=== PATIENT | female | born 1990 ===

== ENCOUNTER 2021-05-29 13:40 | Outpatient (CLI) | payer SELFPAY ==
[2021-05-29 15:10] VITALS: BP 105/60
[2021-05-29] MEDS ORDERED: LACTATED RINGERS 1,000 ML ONE (15:53)
--- NOTE | 2021-05-29 17:13 | Event Note ---
Date: 05/29/21 contractions no cervical change IV fluids steroids ancef nifedipine 20mg x1 dose recheck cervix in one hour,may DC home if no cervical change Retern to triage in 24 hours for Kush #2 PTL precautions Mio Holguin MD
[2021-05-29] MEDS ORDERED: BETAMET ACET/BETAMET NA PH 6 MG/ML INJ 5 ML MDV IM SCH (17:30)
[2021-05-29] MEDS ORDERED: NIFEdipine*For Tocolysis only* 10 MG CAPSULE PO SCH (17:30)
[2021-05-29] MEDS ORDERED: LACTATED RINGERS 500 ML IV ONE (18:57)
== END 2021-05-29 19:11 | disposition home or self-care (01) ==
LOC: TRG 13:40 → APU 13:41 → TRG 19:11
PROVIDERS: ATTEND Obstetrics & Gynecology
DX: O62.9 Abnormality of forces of labor, unspecified (principal); Z3A.33 33 weeks gestation of pregnancy
CPT/HCPCS: 36415; 59025; 82731; 96365; 96372; J0690; J0702; 96360

== ENCOUNTER 2021-05-30 18:33 | Outpatient (CLI) | payer SELFPAY ==
[2021-05-30] MEDS ORDERED: LACTATED RINGERS 500 ML IV ONE (20:32)
[2021-05-30] MEDS ORDERED: BETAMET ACET/BETAMET NA PH 6 MG/ML INJ 5 ML MDV IM ONE (20:51)
[2021-05-30 20:55] VITALS: BP 101/65
== END 2021-05-30 21:56 | disposition home or self-care (01) ==
LOC: TRG 18:33 → APU 18:34 → TRG 21:56
PROVIDERS: ATTEND Obstetrics & Gynecology
DX: Z34.93 Encounter for supervision of normal pregnancy, unspecified, third trimester (principal); Z3A.33 33 weeks gestation of pregnancy
CPT/HCPCS: 59025; 96372; J0702; 96368

== ENCOUNTER 2021-07-04 08:34 | Inpatient (IN) | payer SELFPAY ==
[2021-07-04] MEDS ORDERED: LOPERAMIDE 2 MG CAP PO PRN (09:51)
[2021-07-04] MEDS ORDERED: miSOPROStol 200 MCG TAB PR PRN (09:51)
[2021-07-04] MEDS ORDERED: ePHEDrine SULFATE 50 MG/1 ML INJ IV PRN (09:51)
[2021-07-04] MEDS ORDERED: TERBUTALINE 1 MG/1 ML INJ SUB-Q PRN (09:51)
[2021-07-04] MEDS ORDERED: LIDOCAINE (2%) 20 MG/1 ML VIAL 20 ML MDV INFILTRATI ONE ×2 (09:51→13:37)
[2021-07-04] MEDS ORDERED: CARBOPROST TROMETHAMINE 250 MCG/1 ML INJ IM PRN (09:51)
[2021-07-04] MEDS ORDERED: PROMETHAZINE 25 MG TAB PO PRN ×2 (09:51→15:26)
[2021-07-04] MEDS ORDERED: OXYTOCIN 10 UNIT/1 ML INJ IM PRN (09:51)
[2021-07-04] MEDS ORDERED: BUTORPHANOL 2 MG/1 ML INJ IV PRN ×2 (09:51)
[2021-07-04] MEDS ORDERED: METHYLERGONOVINE MALEATE 0.2 MG/ML VIAL IM PRN (09:51)
[2021-07-04] MEDS ORDERED: ACETAMINOPHEN 325 MG TAB PO PRN ×2 (09:51→15:26)
[2021-07-04] MEDS ORDERED: MINERAL OIL 30 ML ORAL LIQD PO PRN (09:51)
[2021-07-04] MEDS ORDERED: ONDANSETRON 4 MG/2 ML INJ IV PRN ×2 (09:51→15:26)
[2021-07-04] MEDS ORDERED: NALOXONE 0.4 MG/1 ML INJ IV PRN (09:51)
[2021-07-04] MEDS ORDERED: LACTATED RINGERS 1,000 ML ONE (09:55)
[2021-07-04] MEDS ORDERED: OXYTOCIN DRIP 30 UNITS/500 ML BAG IV SCH (10:00)
[2021-07-04] MEDS: LACTATED RINGERS 1,000 ML IV SCH ×2 (10:35→11:52)
[2021-07-04] MEDS: OXYTOCIN DRIP 30 UNITS/500 ML BAG IV SCH ×2 (11:53→13:10)
[2021-07-04] MEDS: fentaNYL 100 MCG/2 ML INJ IV PRN ×2 (11:54→13:43)
[2021-07-04 12:05] LABS: Hematocrit 37.2 % (30.3-42.9); Hemoglobin 12.6 gm/dl (10.1-14.3); Mean Corpuscular HGB Conc 34 % (30-34); Mean Corpuscular Volume 96 fl (79-97); Platelet Count 169 K/mm3 (140-440); Red Blood Count 3.87 M/mm3 (3.65-5.03); Red Cell Distribution Width 13.8 % (13.2-15.2)
[2021-07-04] MEDS ORDERED: diphenhydrAMINE 25 MG CAP PO PRN (15:26)
[2021-07-04] MEDS ORDERED: PROMETHAZINE 25 MG RECT SUPP PR PRN (15:26)
[2021-07-04] MEDS ORDERED: LANOLIN/ZINC/DIMETHICONE (LANSINOH) 7 GM TP PRN (15:26)
[2021-07-04] MEDS ORDERED: WITCH HAZEL/ GLYCERIN PAD TP PRN (15:26)
[2021-07-04] MEDS ORDERED: oxyCODONE /ACETAMINOPHEN 5-325MG TAB PO PRN (15:26)
[2021-07-04] MEDS ORDERED: MAGNESIUM HYDROXIDE (MOM) ORAL LIQD UDC PO PRN (15:26)
--- NOTE | 2021-07-04 15:35 | Procedure Note ---
OB Delivery Note - Delivery Date of Delivery: 07/04/21 (at 1334) Careers Adviser: ESME CHEATHAM (FABIOLA) Estimated blood loss: 500cc - Vaginal Delivery presentation: vertex Delivery position: OA Intrapartum events: meconium (light prior to delivery; terminal meconium) Delivery induction: none Delivery augmentation: rupture of membranes, pitocin Delivery monitor: external FHT, external uterine Route of delivery: Delivery placenta: spontaneous (intact; 3vessel cord) Delivery cord: nuchal cord (x1 not reduceable, sumersal technique) Episiotomy: none Delivery laceration: 2nd degree (perineal), other (periurethral) Anesthesia: intravenous (fentanyl) - A at 1 minute: 8 at 5 minutes: 9 Infant Gender: Male (7lbs 10oz)
[2021-07-04] MEDS: IBUPROFEN 600 MG TAB PO SCH (17:08)
[2021-07-04] MEDS ORDERED: BENZOCAINE/MENTHOL 20/0.5% TOP SPRAY 56 GM TP PRN (17:51)
[2021-07-04] MEDS ORDERED: TETANUS,DIPH,PERTUSS(ACELL) VACCINE 0.5 ML SYRINGE IM ONE (21:00)
[2021-07-05] MEDS: IBUPROFEN 600 MG TAB PO SCH ×4 (00:21→18:38)
[2021-07-05 05:52] LABS: Hematocrit 28.1 % (30.3-42.9); Hemoglobin 9.5 gm/dl (10.1-14.3)
[2021-07-05] MEDS: LEVOTHYROXINE 75 MCG TAB PO SCH (05:58)
[2021-07-05] MEDS: DOCUSATE SODIUM 100 MG CAP PO SCH (10:25)
[2021-07-05] MEDS: metFORMIN 500 MG TAB PO SCH ×2 (10:26→18:39)
--- NOTE | 2021-07-05 12:29 | Progress Note ---
Assessment and Plan A: day 1 S/P . Anemia. Diabetes. P: Supplement with iron. Continue Metformin as prescribed. Continue routine care. Anticipate discharge home tomorrow if patient continues to do well. Subjective - Subjective Date of service: 07/05/21 Principal diagnosis: day 1 S/P Patient reports: appetite normal, voiding normally, pain well controlled, flatus, ambulating normally, no dizzy ambulation, no nauseated : doing well Objective - Vital Signs Latest vital signs: Vital Signs Temp Pulse Resp BP BP Pulse Ox Pulse Ox 07/05/21 08:41 98.2 F 87 18 124/74 97 07/05/21 06:58 18 07/05/21 05:58 18 07/05/21 00:42 98.6 F 62 18 133/70 99 07/04/21 20:30 98.2 F 59 L 18 106/59 07/04/21 19:15 97 07/04/21 15:49 98 07/04/21 15:48 98 F 72 18 123/68 98 07/04/21 14:11 78 117/69 07/04/21 12:28 63 99 Intake and Output 07/04/21 07/05/21 07/05/21 23:59 07:59 15:59 Intake Total 300 200 Output Total 675 800 Balance -375 -600 Intake: Oral 200 Intake, Free Water 300 Output: Urine 675 800 Void 675 800 Other: Total, Intake Amount 200 Total, Output Amount 300 800 # Voids Void 1 1 Estimated Blood Loss 500 - Exam Cardiovascular: Present: Regular rate Lungs: Present: Clear to auscultation Abdomen: Present: normal appearance, soft. Absent: distention, tenderness, guarding, rigidity Uterus: Present: normal, firm, fundal height below umbilicus. Absent: bogginess, tenderness Extremities: Absent: tenderness, edema - Labs Labs: Abnormal lab results 07/05/21 07/05/21 Range/Units 04:56 10:18 Hgb 9.5 L D (10.1-14.3) gm/dl Hct 28.1 L D (30.3-42.9) % POC Glucose 163 H (70-105) mg/dL
[2021-07-05] MEDS: FERROUS SULFATE 325 MG TAB PO SCH (12:46)
[2021-07-06] MEDS: IBUPROFEN 600 MG TAB PO SCH ×2 (00:21→05:44)
[2021-07-06] MEDS: FERROUS SULFATE 325 MG TAB PO SCH ×2 (00:21→10:47)
[2021-07-06] MEDS: DOCUSATE SODIUM 100 MG CAP PO SCH ×2 (00:21→10:47)
[2021-07-06] MEDS: LEVOTHYROXINE 75 MCG TAB PO SCH (05:44)
--- NOTE | 2021-07-06 07:28 | Progress Note ---
Assessment and Plan A: day 2 S/P . Anemia. Diabetes. P: Discharge patient home today. Discussed with patient discharge instructions and warning signs. Advised patient to continue taking her vitamin and iron supplements at home. Advised patient to avoid intercourse, lifting, housework, driving. Advised patient to follow up at [facility] within 1 week and also to follow up with her diabetes doctor within 1 week. Patient voiced understanding of all instructions. Subjective - Subjective Date of service: 07/06/21 Principal diagnosis: day 2 S/P Patient reports: appetite normal, voiding normally, pain well controlled, flatus, ambulating normally, no dizzy ambulation, no nauseated : doing well Objective - Vital Signs Latest vital signs: Vital Signs Temp Pulse Resp BP Pulse Ox Pulse Ox 07/06/21 05:38 98 07/06/21 03:15 98 07/06/21 01:30 97 07/06/21 01:26 97.6 F 67 18 113/70 97 07/06/21 00:20 97 07/05/21 21:40 98 07/05/21 20:20 98 07/05/21 16:27 98.0 F 78 18 120/71 98 07/05/21 12:28 97.9 F 77 18 116/64 96 07/05/21 08:41 98.2 F 87 18 124/74 97 07/05/21 08:30 97 Intake and Output 07/05/21 07/05/21 07/06/21 15:59 23:59 07:59 Intake Total 120 240 Balance 120 240 Intake: Oral 120 240 Other: Total, Intake Amount 120 120 # Voids Void 1 1 1 - Exam Cardiovascular: Present: Regular rate Lungs: Present: Clear to auscultation Abdomen: Present: normal appearance, soft. Absent: distention, tenderness, guar ding, rigidity Uterus: Present: normal, firm, fundal height below umbilicus (fundus firm and midline at 2 FB below umbilicus). Absent: bogginess, tenderness Extremities: Absent: tenderness - Labs Labs: Abnormal lab results 07/05/21 Range/Units 10:18 POC Glucose 163 H (70-105) mg/dL
--- NOTE | 2021-07-06 07:31 | Discharge Summary ---
Providers - Providers Date of Admission: 07/04/21 10:30 Date of discharge: 07/06/21 Attending physician: MELBA HOPKINS MD Primary care physician: MELBA HOPKINS MD Hospitalization Reason for admission: active labor Delivery: Laceration: 2nd degree Other procedures: none complications: none Discharge diagnosis: IUP at term delivered [place] baby: male Pertinent studies: Labs Hospital course: Stable hospital course Condition at discharge: Good Disposition: 01 HOME / SELF CARE / HOMELESS - Discharge Diagnoses (1) Term delivered Status: Acute (2) Anemia Status: Acute Plan - Provider Discharge Summary Activity: routine, no sex for 6 weeks, no heavy lifting 4 weeks, no strenuous exercise Diet: routine Instructions: routine Additional instructions: Continue taking your vitamin and iron supplements at home. Follow up at [facility] within 1 week. Follow up with your diabetes doctor within 1 week. Call your doctor immediately for: * Fever > 100.5 * Heavy vaginal bleeding ( >1 pad per hour) * Severe persistent headache * Shortness of breath * Reddened, hot, painful area to leg or breast - Follow up plan Follow up: MELBA HOPKINS MD [Primary Care Provider] - 7 Days
[2021-07-06] MEDS: metFORMIN 500 MG TAB PO SCH (10:47)
[2021-07-06 13:00] VITALS: BP 113/75
--- NOTE | 2021-07-09 09:03 | History and Physical Report ---
History of Present Illness Date of examination: 07/04/21 (Presented from [facility]) Date of admission: 07/04/21 10:30 Chief complaint: I am in Labor History of present illness: Labor Past History Past Medical History: diabetes (pregestational) Past Surgical History: no surgical history [employer] History: abnormal PAP smear Family/Genetic History: none Social history: - Obstetrical History Expected Date of Delivery: 07/04/21 Actual Gestation: 40 Week(s) 5 Day(s) : 2 Para: 1 Medications and Allergies Allergies Allergy/AdvReac Type Severity Reaction Status Date / Time No Known Allergies Allergy Unverified 05/29/21 15:12 Home Medications Medication Instructions Recorded Confirmed Last Taken Type No Known Home Medications [No 07/04/21 07/04/21 Unknown History Reported Home Medications] Review of Systems Eyes: deferred Ears, nose, mouth and throat: deferred Breasts: normal Rectal Exam: deferred Endocrine: high blood sugars (DM) - Vital Signs Vital signs: Vital Signs Pulse Pulse Ox 68 99 07/04/21 09:22 07/04/21 09:22 Temp Pulse Resp BP Pulse Ox 97.7 F 82 18 113/75 97 07/06/21 12:51 07/06/21 12:51 07/06/21 07:40 07/06/21 12:51 07/06/21 12:51 - Physical Exam Breasts: Positive: deferred Cardiovascular: Regular rate, Normal S1, Normal S2 Lungs: Positive: Clear to auscultation, Normal air movement Abdomen: Positive: other (gravid) Genitourinary (Female): Positive: normal external genitalia, normal perenium Vagina: Positive: normal moisture Uterus: Positive: enlarged Anus/Rectum: Positive: normal perianal skin Extremities: Positive: normal - Obstetrical FHR: category 1 Uterine Contraction Monitor Mode: External Cervical Dilatation: 6 Cervical Effacement Percentage: 70 station: -3 Uterine Contraction Frequency (min): 3-5 Uterine Contraction Pattern: Regular Uterine Contraction Intensity: Moderate Results Result Diagrams: 07/05/21 04:56 All other labs normal. Assessment and Plan A: , Active labor intact membranes GBS neg P: Admit for delivery continuous monitoring Rupture of Membrane augmentation epidural if desires - Patient Problems (1) Active labor at term Status: Acute
== END 2021-07-06 14:00 | disposition home or self-care (01) | DRG 805 ==
LOC: TRG 08:34 → APU 08:35 → LD 09:33 → TRG 10:29 → LD 10:30 → OB 15:28
PROVIDERS: ADMIT Obstetrics & Gynecology; ATTEND Obstetrics & Gynecology
PROC: 10E0XZZ Delivery of Products of Conception, External Approach (ICD-10-PCS; principal; 2021-07-04)
PROC: 0KQM0ZZ Repair Perineum Muscle, Open Approach (ICD-10-PCS; 2021-07-04)
DX: O77.0 Labor and delivery complicated by meconium in amniotic fluid (principal); O24.32 Unspecified pre-existing diabetes mellitus in childbirth; Z37.0 Single live birth; O90.81 Anemia of the puerperium; O70.1 Second degree perineal laceration during delivery; O69.81X0 Labor and delivery complicated by cord around neck, without compression, not applicable or unspecified; Z3A.38 38 weeks gestation of pregnancy
CPT/HCPCS: 36415; 82962; 85014; 85018; 85027; 86850; 86900; 86901; G0378; J2590; J3010; J7120; U0003